=== PATIENT | female | born 1970 | race Two or more races ===

== ENCOUNTER → 2025-03-05 | Day surgery (SDC) | payer OTHER ==
[~2025-03-05] VITALS: Ht 170.2 cm; Wt 67.6 kg
[~2025-03-05] MED LIST: LIDOCAINE 2% (LOCAL ANESTH.) PF 5ml SDV ONE; MAGN250T8 PO; OMEG1400 PO; PROPOFOL 10 MG/ML 20 ML IV ONE; SERT100T PO; TOPI50TA53 PO
[2025-03-05 09:52] VITALS: PULSE 63; RESP 11; TEMP 98.7; O2SAT 100
--- NOTE | 2025-03-05 09:52 | DVHHP2 ---
GI H&P Pre-Op Assessment Date: 03/05/25 Chief complaint: colon cancer screening, diarrhea, regurgitation HPI: per clinic note Past medical history: per clinic note Past surgical history: per clinic note Family history: per clinic note Physical exam: General: NAD, AAOX3 HEENT: PERRL, no scleral icterus, normal hearing, gums without lesions or bleeding, oropharynx clear without erythema or exudate. Neck: Supple without enlargement of the thyroid, or lymphadenopathy. Chest: Normal size and shape, no tenderness, lung real clear to auscultation and percussion, nonlabored breathing. Heart: RRR, no murmur Abdomen: non-distended, no tenderness to palpation, +BS, no hepatosplenomegaly Extremities: no edema Neurological: CN II-XII intact, sensation intact in all extremities, 5+ strength in all extremities Skin: No rashes, No jaundice Assessment: - colon cancer screening, diarrhea, regurgitation Plan: - EGD - Colonoscopy - Risks (bleeding, infection, perforation, reaction to sedation medications and cardiopulmonary arrest) and benefit of the procedure were explained to patient. Patient agrees to undergo the procedure. HARPREET HENLEY MD Mar 05, 2025 09:52
--- NOTE | 2025-03-05 09:54 | DVHOP2 ---
Operative Report DATE OF OPERATION: 03/05/25 PROCEDURE: Upper Endoscopy. PREOPERATIVE INDICATION: The patient is a 54 -year-old female undergoing endoscopy for regurgitation. POSTOPERATIVE DIAGNOSES: 1. Antral gastritis PROCEDURE PERFORMED BY: Gian Villanueva SCOPE: Olympus videoendoscope. ASA CLASS: 3 PREOPERATIVE MEDICATIONS: MAC with Darrick ALMAZAN PROCEDURE IN DETAIL: After obtaining an informed consent, the patient was placed on her back. The patient was then sedated with the above medications. A bite block was placed between her teeth. The endoscope was then passed through the oropharynx, into the esophagus, and through the stomach and pylorus up to the second and third part of the duodenum. The duodenum was normal in appearance. There was antral gastritis. Antral biopsies were obtained using cold biopsy forceps. The GE junction was normal in appearance at 35 cm. The esophagus was normal in appearance. The endoscope was then withdrawn. The patient tolerated the procedure well without difficulty. COMPLICATIONS : None SPECIMENS: Antral biopsies DISPOSITION: D/C to home PLAN: 1. Await for biopsy result IGAN VILLANUEVA MD Mar 05, 2025 09:54
--- NOTE | 2025-03-05 09:56 | DVHOP2 ---
Operative Report DATE OF OPERATION: 03/05/25 PROCEDURE: Colonoscopy. PREOPERATIVE INDICATION: The patient is a 54 -year-old female undergoing colonoscopy for colon cancer screening and diarrhea. POSTOPERATIVE DIAGNOSES: 1. 2 mm transverse colon polyp was removed cold biopsy forceps. 2. Mild diverticulosis in the left colon. 3. Small internal hemorrhoids PROCEDURE PERFORMED BY: Gian Villanueva M.D. SCOPE: Olympus videocolonoscope. ASA CLASS: 3 PREOPERATIVE MEDICATIONS: MAC with Darrick [employer] PROCEDURE IN DETAIL: After obtaining an informed consent, the patient was placed on left lateral decubitus position. She was then sedated with the above medications. A rectal examination was performed that was normal. The co lonoscope was then passed through the anus into the rectosigmoid and through the descending, transverse, and ascending colon up to the cecum with visualization of the appendiceal orifice, base of the cecum and the ileocecal valve. A 2 mm transverse colon polyp was removed with cold biopsy forceps. There was mild diverticulosis in the left colon. There were small internal hemorrhoids. The colonoscope was then withdrawn. The patient tolerated the procedure well without difficulty. WITHDRAWAL TIME: 6 minutes QUALITY OF THE PREP: [place] Bowel Prep score: 5 COMPLICATIONS : None SPECIMENS: Colon polyp DISPOSITION: D/C to home PLAN: 1. Repeat colonoscopy base on biopsy result GIAN VILLANUEVA MD Mar 05, 2025 09:56
--- NOTE | 2025-03-05 09:57 | DVHDS2 ---
Physician Discharge Progress N Final Diagnosis: Antral gastritis Colon polyp, diverticulosis, internal hemorrhoids Operations or Procedures: Operations or Procedures EGD with cold biopsy Colonoscopy with cold biopsy polypectomy Condition on Discharge: Good Disposition: Home Discharge Instructions: Diet: Regular Activity: No Restrictions, As Tolerated Medications: Resume previous home medications Follow Up Care: Discharge Statement: "Patient was advised to return to the ER or call 911 if any headaches, dizziness, shortness of breath, chest pain, abdominal pain, bleeding, fevers, or worsening of medical condition. Patient was counseled about treatment plan, medications, possible side effects, patientverbalized understanding. All questions were answered to the best of my ability. This discharge took greater then 30 minutes in planning, reviewing documentation, counseling the patient, and discussing with other team members." HARPREET HENLEY MD Mar 05, 2025 09:57
[2025-03-05 10:20] VITALS: BP 113/60; PULSE 67; RESP 11; O2SAT 98
== END | disposition home or self-care (01) ==
LOC: GI 08:34
PROVIDERS: ATTEND Internal Medicine Gastroenterology
DX: R19.7 Diarrhea, unspecified (principal); D12.3 Benign neoplasm of transverse colon; K63.5 Polyp of colon; K57.30 Diverticulosis of large intestine without perforation or abscess without bleeding; K64.8 Other hemorrhoids; K29.50 Unspecified chronic gastritis without bleeding; R11.10 Vomiting, unspecified; I10 Essential (primary) hypertension; G43.909 Migraine, unspecified, not intractable, without status migrainosus; Z79.899 Other long term (current) drug therapy; Z98.890 Other specified postprocedural states
CPT/HCPCS: 43239; 45380; 88305; 88342; J2003; J2704; J7030